=== PATIENT | female | born 1995 | race Caucasian/White ===

== ENCOUNTER 2019-11-26 20:21 | Emergency (ER) | payer OTHER, SELFPAY ==
[2019-11-26 20:24] VITALS: BP 156/99; PULSE 95; RESP 20; TEMP 36.6; O2SAT 100
--- NOTE | 2019-11-26 20:35 | ECG_ITS ---
Measurements Intervals [place] Rate: 87 P: 36 HI: 134 QRS: 39 QRSD: 97 T: -17 QT: 367 QTc: 442 Interpretive Statements SINUS RHYTHM INCOMPLETE RIGHT BUNDLE BRANCH BLOCK NONSPECIFIC ST & T-WAVE ABNORMALITY- ANT/INF LEADS BASELINE WANDER- I, II, AVR BORDERLINE ECG Electronically Signed On 11-27-2019 7:50:05 CDT by Lebron Parnell D.O.
--- NOTE | 2019-11-26 20:36 | ED.DIZZY ---
HPI - Dizziness General Chief Complaint: Dizziness Stated Complaint: DIZZINESS Time Seen by Provider: 11/26/19 20:30 History of Present Illness HPI Narrative: Light headedness since yesterday. 2 nights ago she drank too much. The next day she spent much of the day vomiting. After a few hours of this she became light headed. The nausea has passed. She continues to have intermittent episodes of light headedness. Additionally she reports feeling shaky. No diarrhea, fever, MCNEAL, weakness, falls. Related Data Home Medications Medication Instructions Recorded Confirmed fluoxetine 20 mg PO DAILY 11/26/19 11/26/19 Allergies Allergy/AdvReac Type Severity Reaction Status Date / Time No Known Allergies Allergy Verified 11/26/19 20:27 Review of Systems Review of Systems: All systems reviewed & are unremarkable except as noted in HPI and below Constitutional: Constitutional: Denies chills and Denies fever(s) Eyes: Eyes: Denies change in vision Cardiovascular: Cardiovascular: Denies chest pain Respiratory: Respiratory: Denies dyspnea Gastrointestinal: Gastrointestinal: Denies abdominal pain and Denies diarrhea Genitourinary: Genitourinary: Denies dysuria Musculoskeletal: Musculoskeletal: Denies back pain Neurologic: Reports dizziness Psychiatric: Psychiatric: Reports anxiety [facility] Past Medical History Medical History (Updated 11/26/19 @ 22:47 by Carlos Eduardo Ferrara MD) Anxiety Social History Social History (Updated 11/26/19 @ 20:39 by Carlos Eduardo Ferrara MD) Alcohol intake: current Exam Const: General: healthy appearing, no acute distress and alert Orientation/consciousness: patient oriented x3 HENMT: Head: normal to inspection Neck: Neck: normal visual inspection and no lymphadenopathy Chest: Chest palpation & inspection: no tenderness Resp: Effort & Inspection: normal respiratory effort Auscultation: clear to auscultation bilaterally, no rales, no rhonchi and no wheezes Cardio: Jugular venous distension: no JVD Rate: tachycardic Rhythm: regular rhythm GI: Inspection: non-distended GI Palp: Yes Soft to palpation and No Tenderness to palpation present (GI) Skin: General skin exam: normal color Neuro: General: patient oriented x3, moves all extremities and CN's II-XI intact bilaterally Speech: normal speech Extrem: General: no edema Psych: Appearance: well kempt Affect: Anxious affect present Course Vital Signs Vital signs: Vital Signs Temperature 36.6 C 11/26/19 20:24 Pulse Rate 95 11/26/19 20:24 Respiratory Rate 20 11/26/19 20:24 Blood Pressure 156/99 H 11/26/19 20:24 Pulse Oximetry 100 11/26/19 20:24 Temperature 36.6 C 11/26/19 20:24 Pulse Rate 115 H 11/26/19 23:40 Respiratory Rate 20 11/26/19 23:40 Blood Pressure 163/84 H 11/26/19 23:40 Pulse Oximetry 100 11/26/19 23:40 MDM - Dizziness MDM Narrative Medical decision making narrative: Symptoms improved with fluids and ativan Differential Diagnosis Differential diagnosis: Likely other (Dehydration, anxiety) Medical Records Attestation: I reviewed the patient's medical records. Lab Data Attestation: I reviewed the patient's lab results. Labs: UCG Bedside Result Negative Reference Range: Negative Discharge Plan Discharge Clinical Impression: Dehydration, Anxiety Prescriptions: No Action fluoxetine 20 mg tablet 20 mg PO DAILY RF: 0 Interventions: Discharge Disposition Last Done: 11/26/19 23:40 IV Stop Time Documented Last Done: 11/26/19 23:41 Follow-up/Referrals: Rai,MD Nena [Primary Care Provider] - Discharge Date/Time: 11/26/19 23:41
[2019-11-26] MEDS: SODIUM CHLORIDE 0.9% IV 1,000 ML 999 ML IV CONT (21:08)
[2019-11-26] MEDS: diphenhydrAMINE HCl INJ 50 MG/ML VIAL 25 MG IV PUSH (21:08)
[2019-11-26 22:30] VITALS: BP 160/87; PULSE 128
--- NOTE | 2019-11-26 22:30 | PC.NURSE ---
Patient appears anxious--c/o not feeling well-tingling in hands . Patient cautioned to breath slower. Dr Ferrer made aware
[2019-11-26 22:35] VITALS: BP 163/84; PULSE 140
[2019-11-26 23:40] VITALS: BP 163/84; PULSE 115; RESP 20; O2SAT 100
== END 2019-11-26 23:41 | disposition home or self-care (01) ==
LOC: ANHED 20:40
PROVIDERS: Emergency Provider Emergency Medicine; PCP Internal Medicine Geriatric Medicine
DX: F41.9 Anxiety disorder, unspecified (principal); E86.0 Dehydration
CPT/HCPCS: 81025; 93005; 96361; 96374; 96375; 99284; J1200; J2060; J7030

== ENCOUNTER 2022-03-16 16:42 | Emergency (ER) | payer OTHER, SELFPAY ==
[2022-03-16 17:20] VITALS: BP 139/75; PULSE 83; RESP 16; TEMP 36.8; O2SAT 100
--- NOTE | 2022-03-16 18:06 | ED.FEMALEGU ---
HPI - Female Genitourinary General Chief complaint: Urogenital-Female Stated complaint: frequent urination pressure Time Seen by Provider: 03/16/22 18:06 Source: patient, RN notes reviewed and old records reviewed Mode of arrival: ambulatory Limitations: no limitations History of Present Illness HPI Narrative: 26-year-old female presents to the [facility] with complaints of urinary frequency. No burning. Symptoms started this 6 days ago. States that was some frequency and pressure to my bladder. recently seen folder machine adjuster provider. Denies any chances of STD or . Related Data Allergies Allergy/AdvReac Type Severity Reaction Status Date / Time No Known Allergies Allergy Verified 11/26/19 20:27 Review of Systems Review of Systems: All systems reviewed & are unremarkable except as noted in HPI and below Constitutional: Constitutional: Reports no additional constitutional complaints, Denies body ache(s), Denies chills, Denies fever(s) and Denies headache(s) Eyes: Eyes: Reports no additional eye complaints ENT: Reports system reviewed and no additional complaints, except as documented and Denies headache(s) Cardiovascular: Cardiovascular: Reports no additional cardiovascular complaints, Denies chest pain and Denies dyspnea Respiratory: Respiratory: Reports no additional respiratory complaints and Denies dyspnea Gastrointestinal: Gastrointestinal: Reports no additional gastrointestinal complaints and Denies abdominal pain Genitourinary: Genitourinary: Reports as per HPI Musculoskeletal: Musculoskeletal: Reports no additional musculoskeletal complaints Integumentary/Breasts: Skin/Breast: Reports system reviewed and no additional complaints, except as docu Neurologic: Reports system reviewed and no additional complaints, except as documented and Denies headache(s) Psychiatric: Psychiatric: Reports no additional psychiatric complaints Allergic/Immunologic: Allergic/Immunologic: Reports no additional allergic/immunologic complaints PMFSH Past Medical History Medical History Anxiety Social History Social History Alcohol intake: current Comments At the time of my signature, I reviewed and agree with the nursing past medical, surgical, social, and family history. There is no relevant family history pertinent to the patient complaint. Exam Const: General: cooperative, healthy appearing, comfortable, no acute distress, well developed, alert and well nourished Nutritional Appearance: well nourished Orientation/consciousness: patient oriented x3 Limitations: no limitations HENMT: Head: normal to inspection Ears: external ears normal Face/Nose/Sinus: Normal external nose present, Normal nares present, Normal nasal mucous membranes and turbinates present and normal facial exam Face and sinus: normal facial exam Mouth: Yes Normal oral and palatal mucosa present, Yes lip normal and Yes moist mucous membranes abnormal Eyes: General: appearance normal, both eyes and all related structures Alignment and Position: alignment normal Pupils: Equal, round and reactive pupils present Neck: Neck: normal visual inspection, full ROM, no lymphadenopathy and no meningeal signs Chest: Chest palpation & inspection: normal inspection of the chest Resp: Effort & Inspection: normal respiratory effort and no use of accessory muscles Auscultation: clear to auscultation bilaterally, no crackles, no rales, no rhonchi and no wheezes Cardio: Rate: regular rate Rhythm: regular rhythm GI: GI Palp: Yes Soft to palpation and No Tenderness to palpation present (GI) Back/Spine/Pelvis: Cervical Spine: cervical ROM normal and No Cervical spine tenderness Thoracic/Lumbar Spine: thoracic and lumbar spine normal to inspection and thoraco-lumbar ROM normal Skin: General skin exam: normal color Rashes: no rashes Wounds: no wounds [place]
== END 2022-03-16 18:19 | disposition home or self-care (01) ==
PROVIDERS: Emergency Provider Nurse Practitioner; PCP Internal Medicine Geriatric Medicine
DX: R35.0 Frequency of micturition (principal); R30.0 Dysuria
CPT/HCPCS: 81003; 99212; G0463